=== PATIENT | male | born 1990 | race Caucasian/White ===

== ENCOUNTER 2018-05-07 13:21 | Emergency (ER) | payer OTHER, SELFPAY ==
[2018-05-07 13:25] VITALS: BP 153/89; PULSE 90; RESP 16; TEMP 36.2; O2SAT 97; BMI 30.2
--- NOTE | 2018-05-07 13:30 | DI.RAD.S_ITS ---
PROCEDURE: XR ANKLE RT MIN 3V INDICATIONS: Injury TECHNIQUE: 3 views of the ankle were acquired. COMPARISON: None. FINDINGS: Bones: Lucency in the posterior malleolus could represent a nondisplaced fracture. Ankle mortise is normally aligned. No suspicious bony lesions. Soft tissues: Trace tibiotalar joint effusion. Achilles tendon appears normal. Soft tissue swelling over the lateral malleolus. IMPRESSION: 1. Suspect nondisplaced fracture of the posterior malleolus 2. Soft tissue swelling over the lateral malleolus. 3. Trace tibiotalar joint effusion. Dictated by: Mateusz Krueger M.D. on 05/07/2018 at 13:48 Approved by: Mateusz Krueger M.D. on 05/07/2018 at 13:53
--- NOTE | 2018-05-07 13:35 | ED.LOWEXIN ---
HPI - Extremity Injury (Lower) General Chief Complaint: Extremity Injury, Lower Stated Complaint: Right ankle pain Time Seen by Provider: 05/07/18 13:23 Source: patient Mode of arrival: ambulatory Limitations: no limitations History of Present Illness HPI Narrative: Patient is a 28-year-old male who states that 2 days ago he was playing ice hockey and he fell and ran his right ankle into the wall. States that he had pain afterwards. Has been limping on it since then. States that he gets pain along the sides of his ankle when he flexes his ankle. No knee pain. Did not hit his head. No other injuries reported from the event Review of Systems Constitutional Denies fatigue and Denies fever(s) Musculoskeletal Comments: Right ankle pain and swelling Integumentary/Breasts Comments: Bruising around the right ankle Neurologic Comments: No numbness or tingling around the right ankle Endocrine Denies fatigue Hematologic/Lymphatic Denies easy bleeding and Denies easy bruising PFSH Social History Smoking Status: Never smoker Exam Initial Vital Signs Initial Vital Signs: Vital Signs Temperature 97.2 F L 05/07/18 13:25 Pulse Rate 90 05/07/18 13:25 Respiratory Rate 16 05/07/18 13:25 Blood Pressure 153/89 H 05/07/18 13:25 Pulse Oximetry 97 05/07/18 13:25 Const General: cooperative, healthy appearing, comfortable, well developed, well groomed and No acute distress Orientation: alert, awake and oriented x3 HENMT Head: normal to inspection and normocephalic Resp Effort & Inspection: normal respiratory effort Cardio Pulses: dorsalis pedis present on the right Skin Other: No breaks in the skin, bruising inferior to lateral malleolus extending down the lateral portion of the ankle Neuro Other: Sensation intact to light touch right lower extremity Extrem Other: Patient with tenderness to palpation over the medial and lateral aspect of his ankle. No tenderness to palpation at the base of the 5th metatarsal. Achilles appears to be intact with palpation. Patient does ambulate however is limping. Course Orders Ordered: ED Orders 05/07/18 13:30 XR ankle RT min 3V Stat Vital Signs - 8 hr 05/07/18 13:25 Temperature 97.2 F L Pulse Rate 90 Respiratory Rate 16 Blood Pressure 153/89 H Pulse Oximetry 97 MDM - Extremity Injury (Lower) Imaging Data Ankle x-ray: Radiologist's impression: PROCEDURE: XR ANKLE RT MIN 3V INDICATIONS: Injury TECHNIQUE: 3 views of the ankle were acquired. COMPARISON: None. FINDINGS: Bones: Lucency in the posterior malleolus could represent a nondisplaced fracture. Ankle mortise is normally aligned. No suspicious bony lesions. Soft tissues: Trace tibiotalar joint effusion. Achilles tendon appears normal. Soft tissue swelling over the lateral malleolus. IMPRESSION: 1. Suspect nondisplaced fracture of the posterior malleolus 2. Soft tissue swelling over the lateral malleolus. 3. Trace tibiotalar joint effusion. Dictated by: Mateusz Krueger M.D. on 05/07/2018 at 13:48 Approved by: Mateusz Krueger M.D. on 05/07/2018 at 13:53 [facility] Narrative Medical decision making narrative: Radiologist read the x-rays concern for a lucency around the posterior malleolus. The patient is not tender to palpation over this area however he states that when he does walk he gets pain in this area. No other injuries found on the x-ray. The bruising around his ankle is consistent with a ankle sprain. Given the pain in this area and what is found on the x-ray will place the patient in a posterior splint and make him nonweightbearing. He was informed that he needed follow up with his medical department tomorrow as he is active duty [place]. Will have him get another x-ray in approximately 7-10 days for re-evaluation. He was given return precautions. He expressed understanding and agreement with plan Discharge Plan Departure Patient Disposition: Home, Self-Care Clinical Impression: Injury of ankle, right Instructions: How to Use Crutches, How To Perform RICE (Rest, Ice, Compress, Elevate), How to Take Care of Your Splint Activity Restrictions/Additional Instructions: Keep the splint on and keep it clean and keep it dry. You are to use the crutches and do not put any weight on your right ankle. Follow-up with your medical department tomorrow. Recommend that you have a repeat x-ray of your ankle in 7-10 days. Return to the emergency department for any new or worsening symptoms Stand Alone Forms: Work/School Restrictions
== END 2018-05-07 14:33 | disposition home or self-care (01) ==
PROVIDERS: Emergency Provider Emergency Medicine
DX: S99.911A Unspecified injury of right ankle, initial encounter (principal); W22.8XXA Striking against or struck by other objects, initial encounter; Y93.22 Activity, ice hockey
CPT/HCPCS: 29515; 73610; 99283

== ENCOUNTER 2019-05-22 08:43 | Emergency (ER) | payer OTHER, SELFPAY ==
--- NOTE | 2019-05-22 08:52 | ED.GIBLEED ---
HPI - GI Bleed General Chief complaint: Abdominal Pain Stated complaint: BLACK DIARRHEA X5 DAYS,STOMACH PAIN Time Seen by Provider: 05/22/19 08:45 Source: patient and family Mode of arrival: ambulatory Limitations: no limitations History of Present Illness HPI Narrative: 29M non smoker otherwise healthy presents with the chief complaint of 4-5 days of abdominal cramping and foul smelling diarrhea. HE denies antibiotics, recent travel, bad food, or sick contacts. He's had no fever chills and is otherwise well and free a complex. He complains of some of his stent was a been quite dark. Onset (ago): day(s) Pain Consistency: constant Severity: moderate Relieving factors: none Exacerbating factors: none Associated symptoms: denies other symptoms Treatments Prior to Arrival: none Related Data Previous Rx's Medication Instructions Recorded ciprofloxacin HCl [Cipro] 500 mg PO BID #10 tab 05/22/19 Review of Systems Constitutional Denies chills, Denies fever(s), Denies lethargy and Denies weakness Eyes Denies change in vision, Denies eye discharge, Denies irritation and Denies loss of vision ENT Ears, Nose, Mouth, and Throat: Denies change in voice, Denies neck pain and Denies sore throat Cardiovascular Denies chest pain, Denies irregular heart rhythm, Denies lightheadedness, Denies palpitations, Denies dyspnea, Denies dyspnea on exertion and Denies orthopnea Respiratory Denies cough, Denies dyspnea, Denies dyspnea on exertion and Denies wheezing Gastrointestinal Gastrointestinal: Reports abdominal pain, Denies change in bowel habits, Reports diarrhea, Denies nausea and Denies vomiting Genitourinary Denies hematuria, Denies flank pain, Denies urinary incontinence and Denies urinary urgency Musculoskeletal Denies neck pain Integumentary/Breasts Denies pruritus, Denies erythema, Denies rash and Denies wounds Neurologic Denies confusion, Denies loss of vision and Denies weakness Psychiatric Denies anxiety, Denies confusion, Denies depression, Denies homicidal ideation and Denies suicidal ideation Endocrine Denies palpitations Hematologic/Lymphatic Denies easy bruising Allergic/Immunologic Denies wheezing PFSH Social History Smoking Status: Never smoker Social History Smoking Status: Never smoker Exam Narrative Exam Narrative: GENERAL: This is a well-nourished, well-developed patient, in mild distress. HEAD: Atraumatic. Normocephalic. No temporal or scalp tenderness. EYES: Pupils equal round and reactive. Extraocular motions intact. No scleral icterus. No injection or drainage. ENT: Nose without bleeding, purulent drainage or septal hematoma. Throat without erythema, tonsillar hypertrophy or exudate. Uvula midline. Airway patent. NECK: Trachea midline. No JVD or lymphadenopathy. Supple, nontender, no meningeal signs. CARDIOVASCULAR: Regular rate and rhythm without murmurs, gallops, or rubs. RESPIRATORY: Clear to auscultation. Breath sounds equal bilaterally. No wheezes, rales, or rhonchi. GASTROINTESTINAL: Abdomen soft, non-tender, nondistended. No hepato-splenomegaly, or palpable masses. No guarding. EXTREMITIES: No clubbing, cyanosis, or edema. No joint tenderness, effusion, or edema noted. BACK: Nontender without deformity or crepitance. No flank tenderness. NEURO: AOx3. SKIN: No rash or erythema. Initial Vital Signs Initial Vital Signs: Vital Signs Temperature 98.4 F 05/22/19 08:53 Pulse Rate 95 H 05/22/19 08:53 Respiratory Rate 16 05/22/19 08:53 Blood Pressure 152/101 H 05/22/19 08:53 Pulse Oximetry 97 05/22/19 08:53 Course Orders Ordered: Discontinued Medications Ondansetron HCl (Zofran) 4 mg IV NOW ONE Stop: 05/22/19 08:53 Last Admin: 05/22/19 09:08 Dose: 4 mg Pantoprazole Sodium (Protonix) 80 mg IV NOW ONE Stop: 05/22/19 08:53 Last Admin: 05/22/19 09:08 Dose: 80 mg Vital Signs - 8 hr 05/22/19 08:53 Temperature 98.4 F Pulse Rate 95 H Respiratory Rate 16 Blood Pressure 152/101 H Pulse Oximetry 97 MDM - GI Bleed Lab Data Result diagrams: 05/22/19 09:20 05/22/19 09:20 Lab Results 05/22/19 05/22/19 05/22/19 Range/Units 09:15 09:20 09:20 WBC 5.1 (4.5-11.0) X10^3/uL RBC 5.22 (4.5-5.9) X10^6/uL Hgb 16.3 (13.5-17.5) g/dL Hct 47.8 (41-53) % MCV 91.5 (80-100) fL MCH 31.3 (26-34) PG MCHC 34.2 (30-36) % RDW 13.1 (11.6-14.8) % Plt Count 261 (150-400) X10^3/uL Neut % (Auto) 58.2 (50-75) % Lymph % (Auto) 18.6 L (25-40) % [place] % (Auto) 13.5 (3-14) % Eos % (Auto) 9.2 H (2-4) % Baso % (Auto) 0.5 (0-2) % Neut # (Auto) 3000 (3056-6459) /uL Lymph # (Auto) 900 L (2120-1908) /uL [place] # (Auto) 700 (0-900) /uL Eos # (Auto) 500 H (0-450) /uL Baso # (Auto) 0 (0-100) /uL PT 12.4 (10.1-12.7) SECONDS INR 1.1 (0.9-1.3) APTT 32 (26.4-36.2) SECONDS Sodium (137-145) mmol/L Potassium (3.4-5.1) mmol/L Chloride (98-107) mmol/L Carbon Dioxide (22-32) mmol/L BUN (9-20) mg/dL Creatinine (0.66-1.25) mg/dL Estimated GFR (>60) mL/min BUN/Creatinine Ratio (6-22) Glucose (70-100) mg/dL Calcium (8.4-10.2) mg/dL Total Bilirubin (0.2-1.3) mg/dL AST (17-59) IU/L ALT (21-72) IU/L Alkaline Phosphatase (38-126) U/L Total Protein (6.3-8.2) g/dL Albumin (3.5-5.0) g/dL Globulin (1.7-4.1) g/dL Albumin/Globulin Ratio (1.0-2.8) Urine RBC 0-1/hpf (0-5/HPF) Urine WBC 1-5/hpf (0-5/HPF) Ur Squamous Epith Cells 0-1 /hpf (0-5/HPF) Amorphous Sediment 1+ Urine Bacteria Occasional (0-1) (None) Ur Culture Indicated? Cult not indicated Stl C. cayetanensis PCR Stool Rotavirus (PCR) Stool Adenovirus (PCR) Stool Astrovirus (PCR) Stool Cryptosporidium PCR Stl E.coli Shiga Tox PCR St Sh/Enteroin Ecoli PCR Stool E coli O157 PCR Stl Enterotoxigenic E PCR Stool EPEC (PCR) Stl E. histolytica PCR Stool Giardia Lamblia PCR Stl P. shigelloides PCR St Y.enterocolitica PCR Stool Vibrio (PCR) Stl Vibrio cholerae PCR Stl Enteroaggr Ecoli PCR Stl Norovirus GI/GII PCR Campylobacter (PCR) C. difficile Tox (PCR) Salmonella (PCR) Blood Type Antibody Screen 05/22/19 05/22/19 05/22/19 Range/Units 09:20 09:20 09:43 WBC (4.5-11.0) X10^3/uL RBC (4.5-5.9) X10^6/uL Hgb (13.5-17.5) g/dL Hct (41-53) % MCV (80-100) fL MCH (26-34) PG MCHC (30-36) % RDW (11.6-14.8) % Plt Count (150-400) X10^3/uL Neut % (Auto) (50-75) % Lymph % (Auto) (25-40) % [place] % (Auto) (3-14) % Eos % (Auto) (2-4) % Baso % (Auto) (0-2) % Neut # (Auto) (2567-3789) /uL Lymph # (Auto) (7256-2067) /uL [place] # (Auto) (0-900) /uL Eos # (Auto) (0-450) /uL Baso # (Auto) (0-100) /uL PT (10.1-12.7) SECONDS INR (0.9-1.3) APTT (26.4-36.2) SECONDS Sodium 141 (137-145) mmol/L Potassium 3.8 (3.4-5.1) mmol/L Chloride 102 (98-107) mmol/L Carbon Dioxide 25 (22-32) mmol/L BUN 11 (9-20) mg/dL Creatinine 1.00 (0.66-1.25) mg/dL Estimated GFR > 60.0 (>60) mL/min BUN/Creatinine Ratio 11.0 (6-22) Glucose 99 (70-100) mg/dL Calcium 9.5 (8.4-10.2) mg/dL Total Bilirubin 0.7 (0.2-1.3) mg/dL AST 36 (17-59) IU/L ALT 65 (21-72) IU/L Alkaline Phosphatase 120 (38-126) U/L Total Protein 8.7 H (6.3-8.2) g/dL Albumin 5.0 (3.5-5.0) g/dL Globulin 3.7 (1.7-4.1) g/dL Albumin/Globulin Ratio 1.4 (1.0-2.8) Urine RBC (0-5/HPF) Urine WBC (0-5/HPF) Ur Squamous Epith Cells (0-5/HPF) Amorphous Sediment Urine Bacteria (None) Ur Culture Indicated? Stl C. cayetanensis PCR Cancelled Stool Rotavirus (PCR) Cancelled Stool Adenovirus (PCR) Cancelled Stool Astrovirus (PCR) Cancelled Stool Cryptosporidium PCR Cancelled Stl E.coli Shiga Tox PCR Cancelled St Sh/Enteroin Ecoli PCR Cancelled Stool E coli O157 PCR Cancelled Stl Enterotoxigenic E PCR Cancelled Stool EPEC (PCR) Cancelled Stl E. histolytica PCR Cancelled Stool Giardia Lamblia PCR Cancelled Stl P. shigelloides PCR Cancelled St Y.enterocolitica PCR Cancelled Stool Vibrio (PCR) Cancelled Stl Vibrio cholerae PCR Cancelled Stl Enteroaggr Ecoli PCR Cancelled Stl Norovirus GI/GII PCR Cancelled Campylobacter (PCR) Cancelled C. difficile Tox (PCR) Cancelled Salmonella (PCR) Cancelled Blood Type O Positive Antibody Screen Negative Point of Care Testing Stool Occult Blood Positive Urine Dip Bedside Urine Glucose Negative Bedside Urine Bilirubin + 1 Bedside Urine Ketone - Negative Urine Specific [place] 1.025 Bedside Urine Occult Blood - Negative Bedside Urine pH 6.0 Bedside Urine Protein +/- 15 Bedside Urine Urobilinogen +/- 1mg Bedside Urine Nitrite - Negative Bedside Urine Leukocytes - Negative Esterase Discharge Plan Departure Patient Disposition: Home Clinical Impression: Campylobacter diarrhea Discharge Date/Time: 05/22/19 10:20 Interventions: ED Discharge Assessment Last Done: 05/22/19 10:15 Instructions: Diarrhea Activity Restrictions/Additional Instructions: 1. Drink plenty of fluids with frequent small sips. 2. For the next 24 hours a clear liquid diet is advised. After that please employ a brat diet which would include bananas, rice, apples, toast. 3. Please take medications as directed. 4. Please follow-up with your doctor in the next 1-2 days. Call the office for an appointment. 5. Please return to the emergency Department for any worsening or persistent symptoms, such as increasing pain or fever. Prescriptions: New ciprofloxacin HCl [Cipro] 500 mg tablet 500 mg PO BID Qty: 10 RF: 0 Referrals: [facility] [Outside]
[2019-05-22 08:53] VITALS: BP 152/101; PULSE 95; RESP 16; TEMP 36.9; O2SAT 97
[2019-05-22] MEDS: PANTOPRAZOLE 40 MG VIAL 80 MG IV (09:08)
[2019-05-22] MEDS: ONDANSETRON 4 MG/2 ML INJ IV (09:08)
[2019-05-22 09:44] LABS: Add Manual Diff / Slide Review NO; Basophils Absolute Auto 0 /uL (0-100); Basophils Percent Auto 0.5 % (0-2); Eosinophils Absolute Auto 500 /uL (0-450); Eosinophils Percent Auto 9.2 % (2-4); Hematocrit 47.8 % (41-53); Hemoglobin 16.3 g/dL (13.5-17.5); INR 1.1 (0.9-1.3); Lymphocytes Absolute Auto 900 /uL (1100-4500); Lymphocytes Percent Auto 18.6 % (25-40); Mean Corpuscular HGB Conc 34.2 % (30-36); Mean Corpuscular Hemoglobin 31.3 PG (26-34); Mean Corpuscular Volume 91.5 fL (80-100); Monocytes Absolute Auto 700 /uL (0-900); Monocytes Percent Auto 13.5 % (3-14); Neutrophils Absolute Auto 3000 /uL (1500-7000); Neutrophils Percent Auto 58.2 % (50-75); Platelet Count 261 X10^3/uL (150-400); Prothrombin Time 12.4 SECONDS (10.1-12.7); Red Blood Cell Count 5.22 X10^6/uL (4.5-5.9); Red Cell Distribution Width 13.1 % (11.6-14.8); White Blood Cell Count 5.1 X10^3/uL (4.5-11.0)
[2019-05-22 09:45] LABS: Amorphous Sediment Urine 1+; Bacteria Urine Occasional (0-1); Culture Indicated Urine Cult Not Indicated; RBC Urine 0-1/HPF (0-5/HPF); Squamous Epithelial Cell Urine 0-1 /HPF (0-5/HPF); WBC Urine 1-5/HPF (0-5/HPF)
[2019-05-22 09:47] LABS: PTT Partial Thromboplastin Tim 32 SECONDS (26.4-36.2)
[2019-05-22 09:49] LABS: Alanine Aminotransferase 65 IU/L (21-72); Albumin Globulin Ratio 1.4 (1.0-2.8); Alkaline Phosphatase 120 U/L (38-126); Aspartate Aminotransferase 36 IU/L (17-59); Bilirubin Total 0.7 mg/dL (0.2-1.3); Blood Urea Nitrogen 11 mg/dL (9-20); Calcium 9.5 mg/dL (8.4-10.2); Carbon Dioxide 25 mmol/L (22-32); Chloride 102 mmol/L (98-107); Estimated Glomerular Filt Rate > 60.0 mL/min (>60); Globulin 3.7 g/dL (1.7-4.1); Glucose 99 mg/dL (70-100); HEMOLYSIS < 15 (0-50); Potassium 3.8 mmol/L (3.4-5.1); Sodium 141 mmol/L (137-145); Total Protein 8.7 g/dL (6.3-8.2)
== END 2019-05-22 10:20 | disposition home or self-care (01) ==
PROVIDERS: Emergency Provider Emergency Medicine
DX: A04.5 Campylobacter enteritis (principal)
CPT/HCPCS: 36591; 80053; 81003; 81015; 82272; 85025; 85610; 85730; 86850; 86900; 86901; 87045; 87046; 87899; 96374; 96375; 99283; 99284; C9113; J2405